=== PATIENT | female | born 1945 | race Caucasian/White ===

== ENCOUNTER → 2016-10-01 | Outpatient (CLI) | payer OTHER | LOC: FIMAGING 09:22 | DX: Z12.31 Encounter for screening mammogram for malignant neoplasm of breast (principal) | CPT/HCPCS: G0202 ==

== ENCOUNTER → 2017-01-11 | Outpatient (CLI) | payer OTHER | LOC: BMCIMAGING 09:03 | PROVIDERS: ATTEND Internal Medicine | DX: R10.11 Right upper quadrant pain (principal); R14.0 Abdominal distension (gaseous) ==

== ENCOUNTER → 2017-08-05 | Outpatient (CLI) | payer OTHER | LOC: BMCIMAGING 15:06 | PROVIDERS: ATTEND Internal Medicine | DX: N28.89 Other specified disorders of kidney and ureter (principal) ==

== ENCOUNTER → 2017-10-17 | Outpatient (CLI) | payer OTHER | LOC: FIMAGING 14:45 | PROVIDERS: ATTEND Obstetrics & Gynecology | DX: Z12.31 Encounter for screening mammogram for malignant neoplasm of breast (principal) ==

== ENCOUNTER → 2018-09-01 | Outpatient (CLI) | payer OTHER | LOC: BMCIMAGING 15:03 | PROVIDERS: ATTEND Internal Medicine | DX: N28.9 Disorder of kidney and ureter, unspecified (principal) ==

== ENCOUNTER → 2018-11-13 | Outpatient (CLI) | payer OTHER | LOC: FIMAGING 15:06 | PROVIDERS: ATTEND Obstetrics & Gynecology | DX: Z12.31 Encounter for screening mammogram for malignant neoplasm of breast (principal) ==